=== PATIENT | female | born 1995 | race Caucasian/White ===

== ENCOUNTER 2021-02-17 08:45 | Emergency (ER) | payer BC ==
[2021-02-17 09:08] VITALS: PULSE 56; TEMP 98.5; BMI 21.7
[2021-02-17] MEDS ORDERED: CASIRIVIMAB/IMDEVIMAB 10 ML in SODIUM CHLORIDE 100 ML IVPB ONE (09:57)
[2021-02-17 12:11] VITALS: BP 115/68
== END 2021-02-17 12:10 | disposition home or self-care (01) ==
LOC: JCOVINFU 08:45 → JER 08:45 → JCOVINFU 12:10
PROC: 3E033GC Introduction of Other Therapeutic Substance into Peripheral Vein, Percutaneous Approach (ICD-10-PCS; principal; 2021-02-17)
DX: U07.1 COVID-19 (principal)
CPT/HCPCS: 99284-25; Q0240